=== PATIENT | male | born 1995 | race Caucasian/White ===

== ENCOUNTER 2018-12-25 07:17 | Day surgery (SDC) | payer MEDICAID, OTHER ==
--- NOTE | 2018-12-25 06:55 | PDHPUP ---
History & Physical Update H&P update statement: This history and physical update is based on an assessment of the patient which was completed after admission or registration (within 24 hours), but prior to the surgery/procedure. H&P update: H&P reviewed & patient examined, no change in patient's condition since H&P completed
--- NOTE | 2018-12-25 06:59 | POSTOPPROG ---
Post Op Note Date of Operation: 12/26/18 Surgeon: Hardy Sidhu Anesthesia: IV Sedation Pre-op Diagnosis: Ventral hernia with 1.7" Ventralex mesh Post-op Diagnosis: Same Procedure: Ventral hernia repair Inf/Abcess present in the surg proc area at time of surgery?: No EBL: Minimal Specimen(s): none
[2018-12-25] MEDS ORDERED: LIDOCAINE 1% 2 ML INJ ID PRN (07:32)
[2018-12-25] MEDS ORDERED: LR 1,000 ML IV ONE (07:32)
[2018-12-25] MEDS ORDERED: BUPIVACAINE/EPI 0.5% 30 ML SDV ONE (09:40)
[2018-12-25] MEDS ORDERED: MIDAZOLAM 2 MG/2 ML VIAL IVP ONE (10:13)
--- NOTE | 2018-12-25 10:13 | PDANEPAE ---
ANE History of Present Illness ventral hernia ANE Past Medical History - Cardiovascular History Hx Hypertension: No Hx Arrhythmias: No Hx Chest Pain: No Hx Coronary Artery / Peripheral Vascular Disease: No Hx CHF / Valvular Disease: No Hx Palpitations: No - Pulmonary History Hx COPD: No Hx Asthma/Reactive Airway Disease: No Hx Recent Upper Respiratory Infection: No Hx Oxygen in Use at Home: No Hx Sleep Apnea: No Sleep Apnea Screening Result - Last Documented: Negative - Neurologic History Hx Cerebrovascular Accident: No Hx Seizures: No Hx Dementia: No - Endocrine History Hx Diabetes: No Hypothyroid: No Hyperthyroid: No Obesity: no - Renal History Hx Renal Disorders: No - Liver History Hx Hepatic Disorders: No - Neurological & Psychiatric Hx Hx Neurological and Psychiatric Disorders: Yes Neurological / Psychiatric History Comment: ANXIETY - Cancer History Hx Cancer: No - Congenital Disorder History Hx Congenital Disorders: No - GI History GERD: mild Hx Gastrointestinal Disorders: Yes Gastrointestinal History Comment: ACID REFLUX - Other Health History Other Health History: NONE - Chronic Pain History Chronic Pain: No - Surgical History Prior Surgeries: NONE ANE Review of Systems Review of systems is: negative Review of Systems: - Exercise capacity METS (RN): 6 METS ANE Patient History - Allergies Allergies/Adverse Reactions: No Known Allergies Allergy (Verified 12/24/18 16:57) - Home Medications Home medications: home medication list seen and reviewed Home Medications: Omeprazole 12/24/18 [Last Taken 12/25/18] - NPO status NPO Status: no food or drink >8 hours NPO Since - Liquids (Date): 12/24/18 NPO Since - Liquids (Time): 21:00 NPO Since - Solids (Date): 12/24/18 NPO Since - Solids (Time): 18:00 - Anes Hx Anes Hx: no prior problems - Smoking Hx Smoking Status: Light smoker - Alcohol Use Alcohol Use: Rarely - Family Anes Hx Family Anes Hx: none Family Hx Anesthesia Complications: NONE ANE Labs/Vital Signs - Vital Signs Blood Pressure: 107/69 Heart Rate: 55 Respiratory Rate: 18 O2 Sat (%): 96 Height: 170.18 cm Weight: 61.235 kg ANE Physical Exam - Airway Neck exam: FROM Mallampati Score: Class 2 Mouth exam: normal dental/mouth exam - Pulmonary Pulmonary: no respiratory distress, clear to auscultation - Cardiovascular Cardiovascular: regular rate and rhythym, no murmur, rub, or gallop - ASA Status ASA Status: II ANE Anesthesia Plan Anesthesia Plan: GA with mask, MAC
[2018-12-25] MEDS ORDERED: PROPOFOL/EMULSION 500 MG/50 ML BOTTLE IV ONE (10:20)
[2018-12-25] MEDS ORDERED: fentaNYL 100 MCG/2 ML INJ ONE (10:20)
[2018-12-25] MEDS ORDERED: LIDOCAINE 2% 5 ML SDV ONE (10:22)
[2018-12-25] MEDS ORDERED: LIDOCAINE 1% 300 MG/30 ML SDV ONE (10:41)
[2018-12-25] MEDS ORDERED: NALOXONE HCL 0.4 MG/ML INJ IVP PRN (11:12)
[2018-12-25] MEDS ORDERED: LR 500 ML IV PRN (11:12)
[2018-12-25] MEDS ORDERED: fentaNYL 100 MCG/2 ML INJ IVP PRN (11:12)
[2018-12-25] MEDS ORDERED: DIAZEPAM 5 MG/ML 1 ML SYR IVP PRN (11:12)
--- NOTE | 2018-12-25 11:12 | POSTANESTH ---
Post Anesthetic Evaluation Cardiovascular Status: Normal, Stable Respiratory Status: Normal, Stable Level of Consciousness/Mental Status: Can Participate in Eval Pain Control: Adequate, Prn Tx Ordered Nausea/Vomiting Control: Adequate, Prn Tx Ordered Complications Possibly Related to Anesthesia: None Noted
[2018-12-25 12:38] VITALS: BP 123/78
--- NOTE | 2018-12-25 20:08 | GOP ---
[f rep st] OPERATIVE REPORT DATE OF OPERATION: 12/25/2018 SURGEON: Hardy Sidhu MD ANESTHESIA: MAC. ANESTHESIOLOGIST: Anne Larson MD. PREOPERATIVE DIAGNOSIS: Ventral hernia. POSTOPERATIVE DIAGNOSIS: Ventral hernia. PROCEDURE PERFORMED: Ventral herniorrhaphy with 1.7-inch Ventralex mesh. FINDINGS: See below. INDICATIONS: 23-year-old male with a symptomatic epigastric ventral hernia. He is undergoing surgical repair at this time. Risks and benefits were explained including bleeding, infection, and recurrence, as well as bowel injury. All questions were answered. He desires to proceed. DESCRIPTION OF PROCEDURE: After monitored anesthesia care was started, the abdomen was preoperatively marked along the epigastric small hernial defect. A longitudinal incision was created. The subcutaneous tissues were divided towards the midline fascia. The midline decussation of fibers were interrogated showing a 1 cm defect with reducible preperitoneal fat. The fascia was extremely thin and attenuated throughout. The defect was partially expanded allowing for placement of a 1.7-inch Ventralex mesh subfascially. Satisfactory hemostasis was assured. The defect was closed vertically with a running Vicryl suture. The wound was closed in layers with absorbables by Dermabond. The patient was taken to the recovery room uneventfully. /[id number]/MODL MTDD
== END 2018-12-25 12:37 | disposition home or self-care (01) ==
LOC: FSGY 07:17
PROVIDERS: ATTEND Surgery
PROC: 0WUF0JZ Supplement Abdominal Wall with Synthetic Substitute, Open Approach (ICD-10-PCS; principal; 2018-12-25 09:00)
DX: K43.9 Ventral hernia without obstruction or gangrene (principal); K21.9 Gastro-esophageal reflux disease without esophagitis; F17.200 Nicotine dependence, unspecified, uncomplicated
CPT/HCPCS: C1781; J2250; J2704; J3010